=== PATIENT | female | born 1985 | race Caucasian/White ===

== ENCOUNTER 2016-08-12 04:23 | Emergency (ER) | payer OTHER ==
[2016-08-12] MEDS ORDERED: ACETAMINOPHEN TAB 500 MG TAB PO STA (04:43)
[2016-08-12] MEDS ORDERED: SODIUM CHLORIDE 0.9% 500 ML IV ONE (04:43)
--- NOTE | 2016-08-12 04:45 | ED ---
General Adult HPI - General Chief complaint: Upper Respiratory Infection Stated complaint: URI Time Seen by Provider: 08/12/16 04:30 Source: patient, RN notes reviewed Mode of arrival: ambulatory Limitations: no limitations - History of Present Illness Initial comments: Is a 31-year-old female who is 20 weeks . Patient comes into the emergency Department complaining that she's had a fever the last couple of days and had a significant cough. Patient denies any shortness of breath or difficulty breathing. Patient states this morning she was coughing hard and thought she might pass out. She denies sided to come to the emergency department. Patient states she coughed so hard that she has noticed that the baby is moving more inside of her. Patient denies any chest pain or palpitations. Patient denies any significant abdominal pain. Patient denies any dysuria or hematuria urinary frequency. Patient denies taking anything for the fever. Patient states she also had body aches. Patient states she didn't get the flu shot. - Related Data Previous Rx's Medication Instructions Recorded Oseltamivir [Tamiflu] 75 mg PO Q12HR #10 cap 08/12/16 Allergies Allergy/AdvReac Type Severity Reaction Status Date / Time No Known Allergies Allergy Verified 08/12/16 05:39 Review of Systems ROS Statement: Those systems with pertinent positive or pertinent negative responses have been documented in the HPI. ROS Other: All systems not noted in ROS Statement are negative. Past Medical History Past Medical History: No Reported History History of Any Multi-Drug Resistant Organisms: None Reported Past Surgical History: Appendectomy Additional Past Surgical History / Comment(s): , tube placed in ear Past Psychological History: No Psychological Hx Reported Smoking Status: Never smoker Past Alcohol Use History: None Reported Past Drug Use History: None Reported General Exam - General Exam Comments Initial Comments: GENERAL: Patient is well-developed and well-nourished. Patient is nontoxic and well- hydrated and is in mild distress. ENT: Neck is soft and supple. No significant lymphadenopathy is noted. Oropharynx is clear. Moist mucous membranes. Neck has full range of motion without eliciting any pain. EYES: The sclera were anicteric and conjunctiva were pink and moist. Extraocular movements were intact and pupils were equal round and reactive to light. Eyelids were unremarkable. PULMONARY: Unlabored respirations. Good breath sounds bilaterally. No audible rales rhonchi or wheezing was noted. CARDIOVASCULAR: There is a regular rate and rhythm without any murmurs gallops or rubs. ABDOMEN: Soft and nontender with normal bowel sounds. No palpable organomegaly was noted. There is no palpable pulsatile mass. SKIN: Skin is clear with no lesions or rashes and otherwise unremarkable. NEUROLOGIC: Patient is alert and oriented x3. Cranial nerves II through XII are grossly intact. Motor and sensory are also intact. Normal speech, volume and content. Symmetrical smile. MUSCULOSKELETAL: Normal extremities with adequate strength and full range of motion. No lower extremity swelling or edema. No calf tenderness. LYMPHATICS: No significant lymphadenopathy is noted PSYCHIATRIC: Normal psychiatric evaluation. Normal interpersonal interactions appears functionally intact in deals appropriately with others. No signs of depression. No signs of anxiety Limitations: no limitations Course Vital Signs 08/12/16 08/12/16 04:26 05:05 Temperature 100.5 F H Pulse Rate 129 H Pulse Rate [ 110 H Sitting] Pulse Rate [ 132 H Standing] Pulse Rate [ 107 H Supine] Respiratory 20 Rate Blood Pressure 126/82 Blood Pressure 107/62 [Sitting] Blood Pressure 116/71 [Standing] Blood Pressure 105/61 [Supine] O2 Sat by Pulse 98 Oximetry Medical Decision Making - Medical Decision Making Patient refused Tylenol and refused Tamiflu in the ER - Lab Data Result diagrams: 08/12/16 04:52 08/12/16 04:52 Lab Results 08/12/16 08/12/16 08/12/16 Range/Units 04:52 04:52 04:52 WBC 5.8 (3.8-10.6) k/uL RBC 4.51 (3.80-5.40) m/uL Hgb 13.6 (11.4-16.0) gm/dL Hct 37.8 (34.0-46.0) % MCV 83.9 (80.0-100.0) fL MCH 30.1 (25.0-35.0) pg MCHC 35.9 (31.0-37.0) g/dL RDW 13.4 (11.5-15.5) % Plt Count 157 (150-450) k/uL Neutrophils % 81 % Lymphocytes % 10 % Monocytes % 5 % Eosinophils % 1 % Basophils % 1 % Neutrophils # 4.7 (1.3-7.7) k/uL Lymphocytes # 0.6 L (1.0-4.8) k/uL Monocytes # 0.3 (0-1.0) k/uL Eosinophils # 0.0 (0-0.7) k/uL Basophils # 0.0 (0-0.2) k/uL Sodium 137 (137-145) mmol/L Potassium 3.8 (3.5-5.1) mmol/L Chloride 104 (98-107) mmol/L Carbon Dioxide 21 L (22-30) mmol/L Anion Gap 12 mmol/L BUN 4 L (7-17) mg/dL Creatinine 0.40 L (0.52-1.04) mg/dL Est GFR (MDRD) Af Amer >60 (>60 ml/min/1.73 sqM) Est GFR (MDRD) Non-Af >60 (>60 ml/min/1.73 sqM) Glucose 107 H (74-99) mg/dL Calcium 9.0 (8.4-10.2) mg/dL Total Bilirubin 0.5 (0.2-1.3) mg/dL AST 24 (14-36) U/L ALT 35 (9-52) U/L Alkaline Phosphatase 55 (38-126) U/L Total Protein 6.9 (6.3-8.2) g/dL Albumin 3.9 (3.5-5.0) g/dL Influenza Type A RNA Not Detected (Not Detectd) Influenza Type B (PCR) Detected H (Not Detectd) Disposition Clinical Impression: Influenza Disposition: HOME SELF-CARE Condition: Good Instructions: Influenza (ED) Prescriptions: Oseltamivir [Tamiflu] 75 mg PO Q12HR #10 cap Referrals: None,Stated [Primary Care Provider] - 1-2 days Time of Disposition: 05:38
[2016-08-12 05:09] LABS: Basophils % (A) 1 %; CH 30.7; CHCM 36.7; Eosinophils % (A) 1 %; HCT 37.8 % (34.0-46.0); HDW 2.92; HGB 13.6 gm/dL (11.4-16.0); Luc # (Auto) 0.16; Luc % (Auto) 3; Lymphocytes # (A) 0.6 k/uL (1.0-4.8); Lymphocytes % (A) 10 %; MCH 30.1 pg (25.0-35.0); MCHC 35.9 g/dL (31.0-37.0); MCV 83.9 fL (80.0-100.0); Mean Platelet Volume 7.9; Monocytes # (A) 0.3 k/uL (0-1.0); Monocytes % (A) 5 %; Neutrophils # (A) 4.7 k/uL (1.3-7.7); Neutrophils % (A) 81 %; RBC 4.51 m/uL (3.80-5.40); RDW 13.4 % (11.5-15.5); WBC 5.8 k/uL (3.8-10.6); WBC (Perox) 5.83
[2016-08-12 05:18] LABS: ALT 35 U/L (9-52); AST 24 U/L (14-36); Alkaline Phosphatase 55 U/L (38-126); Anion Gap 12 mmol/L; Blood Urea Nitrogen 4 mg/dL (7-17); Carbon Dioxide 21 mmol/L (22-30); Chloride 104 mmol/L (98-107); Glucose 107 mg/dL (74-99); Non-African American GFR(MDRD) >60 (>60 ml/min/1.73 sqM); Potassium 3.8 mmol/L (3.5-5.1); Sodium 137 mmol/L (137-145); Total Bilirubin 0.5 mg/dL (0.2-1.3); Total Protein 6.9 g/dL (6.3-8.2)
[2016-08-12] MEDS ORDERED: OSELTAMIVIR 75 MG CAP PO STA (05:34)
[2016-08-12 06:11] LABS: Amorphous Sediment,Urine Rare /hpf; Appearance,Urine Cloudy (Clear); Bacteria,Urine Rare /hpf; Bilirubin,Urine Negative (Negative); Glucose,Urine (UA) Negative (Negative); Ketones,Urine 1+ (Negative); Leukocyte Esterase,Urine Trace (Negative); Mucus,Urine Rare /hpf; Nitrite,Urine Negative (Negative); PH, Urine 5.5 (5.0-8.0); Particle Count 4367; Protein,Urine Negative (Negative); RBC,Urine <1 /hpf (0-5); Specific Gravity,Urine 1.005 (1.001-1.035); Squamous Epithelial Cell,Urine 5 /hpf (0-4); UA Billing (MACRO vs. MICRO) MICRO; Urobilinogen,Urine <2.0 mg/dL (<2.0); WBC,Urine 4 /hpf (0-5)
[2016-08-12 06:24] VITALS: BP 108/69; PULSE 100; RESP 16; TEMP 99.9
== END 2016-08-12 06:24 | disposition home or self-care (01) ==
LOC: EC 04:23
DX: O26.892 Other specified pregnancy related conditions, second trimester (principal); J11.1 Influenza due to unidentified influenza virus with other respiratory manifestations; Z3A.20 20 weeks gestation of pregnancy
CPT/HCPCS: 36415; 80053; 81001; 85025; 87502; 96360; 99283

== ENCOUNTER → 2016-09-07 | Outpatient (CLI) | payer OTHER ==
--- NOTE | 2016-09-07 16:37 | US ---
EXAMINATION TYPE: US OB anatomy transabd DATE OF EXAM: 09/07/2016 4:02 PM COMPARISON: NONE HISTORY: Large for Dates O36.62X0 no complaints per pt TECHNIQUE: Transabdominal (TA) EXAM MEASUREMENTS: GESTATIONAL AGE / DATING Physician Established: (23 weeks/2 days) EDC: 01/02/2017 Dates by LMP: (23 weeks/2 days) EDC: 01/02/2017 Dates by First Scan: (22 weeks/3 days) EDC: 01/08/2017 Dates by Current Scan for: (23 weeks/3 days) EDC: 01/01/2017 SURVEY IUP: Single PLACENTA: Posterior PREVIA: No previa BRANDI: 15.8 cm Normal CERVICAL LENGTH (transabdominal: norm > 3.0cm): 3.6 cm BIOMETRY PRESENTATION: Vertex LIE: Longitudinal BPD: 5.7 cm 23 weeks / 4 days HC: 20.2 cm 22 weeks / 3 days AC: 19.2 cm 23 weeks / 5 days FL: 4.2 cm 23 weeks / 5 days ESTIMATED WEIGHT IN GRAMS: 616 grams ESTIMATED WEIGHT IN LBS/OZS: 1 lbs. 6 oz. WEIGHT PERCENTAGE BASED ON ESTABLISHED DATE: 61 % HC/AC: 1.05 Normal FL/AC: 22 Normal HEART RATE: 141 bpm RHYTHM: Normal ANATOMY SEEN (within normal limits): * Lateral Vent (< 1 cm) 0.6 cm * Cisterna Magna (< 1.1 cm) 0.3 cm * Nuchal Fold (< 0.6 cm) 0.3 cm * Cerebellum (varies with age) 2.2 cm Choroid Plexus (bilateral) Midline Falx Cavus Septi Pellucidi Four Chamber Heart Outflow tracts: LVOT/RVOT Stomach Situs Nose / Lips Diaphragm Kidneys (bilateral) Bladder Cord Insert Three Vessel Cord Longitudinal Spine Transverse Spine Arms (bilateral) Legs (bilateral) IMPRESSION: 1. Single intrauterine gestation estimated at 23 weeks 3 days gestation. This would have a calculated EDC of 01/01/2017. Correlate this with her physician established EDC is 01/02/2017. 2. Cardiac activity measures 141 bpm.
== END | disposition home or self-care (01) ==
LOC: RADUSWWP 15:25
PROVIDERS: ATTEND Obstetrics & Gynecology
DX: O36.62X0 Maternal care for excessive fetal growth, second trimester, not applicable or unspecified (principal); Z3A.23 23 weeks gestation of pregnancy
CPT/HCPCS: 76811

== ENCOUNTER 2016-12-27 05:51 | Inpatient (IN) | payer OTHER ==
[2016-12-26 12:28] VITALS: BMI 39.3
--- NOTE | 2016-12-26 17:44 | P.HPOB ---
History of Present Illness H&P Date: 12/26/16 Chief Complaint: Brixey at term: Previous section Patient is a 31-year-old at 39 weeks gestation arise for repeat section. Her Precis course has been unremarkable and she is feeling well at this time. It is noted early in the she did have some skipped beats but this resolved without any other therapies. Her pertinent labs did include O + blood type rubella immune hepatitis B surface antigen RPR and cystic fibrosis screen were all negative. She's had 2 prior sections and is scheduled for repeat section. On physical exam vital signs are stable and afebrile. Heart regular, lungs clear, extremities without pain. Osteopathic exams unremarkable. Abdomen soft gravid uterus is noted. heart tones will be obtained prior to going to the section room. All questions are answered for her prior to going and risks benefits and alternatives were thoroughly discussed. Assessment intrauterine at term. Prior sections. Plan repeat section. Past Medical History Past Medical History: No Reported History History of Any Multi-Drug Resistant Organisms: None Reported Past Surgical History: Appendectomy, Section Additional Past Surgical History / Comment(s): , tube placed in ear Past Anesthesia/Blood Transfusion Reactions: No Reported Reaction Smoking Status: Never smoker - Past Family History Mother Family Medical History: No Reported History Medications and Allergies Home Medications Medication Instructions Recorded Confirmed Type No Known Home Medications [No 12/26/16 12/26/16 History Known Home Medications] Allergies Allergy/AdvReac Type Severity Reaction Status Date / Time No Known Allergies Allergy Verified 12/26/16 12:22 Exam Osteopathic Statement: *. No significant issues noted on an osteopathic structural exam other than those noted in the History and Physical/Consult. - Vital Signs Vital signs: Intake and Output 12/26/16 12/26/16 12/26/16 06:59 14:59 22:59 Other: Weight 100.698 kg Patient Weight 12/27/16 06:59 Weight 100.698 kg
[2016-12-27] MEDS ORDERED: CITRIC ACID-SODIUM CITRATE 15 ML CUP PO ONE (06:05)
[2016-12-27] MEDS ORDERED: ceFAZolin 2 GM in SODIUM CHLORIDE 0.9% 100 ML IVPB ONE (06:05)
[2016-12-27] MEDS: LACTATED RINGERS 1,000 ML IV SCH ×5 (06:25→20:25)
[2016-12-27 06:29] LABS: Basophils % (A) 0 %; CHCM 32.9; Eosinophils # (A) 0.1 k/uL (0-0.7); Eosinophils % (A) 1 %; HCT 34.2 % (34.0-46.0); HDW 3.51; HGB 11.5 gm/dL (11.4-16.0); Hypochromasia Slight; Luc # (Auto) 0.23; Luc % (Auto) 2; Lymphocytes # (A) 1.8 k/uL (1.0-4.8); Lymphocytes % (A) 19 %; MCH 25.5 pg (25.0-35.0); MCHC 33.6 g/dL (31.0-37.0); MCV 75.9 fL (80.0-100.0); Mean Platelet Volume 8.6; Microcytosis Slight; Monocytes # (A) 0.4 k/uL (0-1.0); Monocytes % (A) 4 %; Neutrophils # (A) 7.1 k/uL (1.3-7.7); Neutrophils % (A) 74 %; Poikilocytosis Slight; RDW 14.9 % (11.5-15.5); WBC 9.6 k/uL (3.8-10.6); WBC (Perox) 9.78
[2016-12-27] MEDS ORDERED: OXYTOCIN 10 UNIT/ML 1 ML VIAL ONE (07:50)
[2016-12-27] MEDS ORDERED: ONDANSETRON 4 MG/2 ML VIAL ONE (07:50)
[2016-12-27] MEDS ORDERED: NALBUPHINE 10 MG/ML AMPUL ONE (07:50)
[2016-12-27] MEDS ORDERED: KETOROLAC 30 MG/ML 1 ML VIAL ONE (07:50)
[2016-12-27] MEDS ORDERED: MORPHINE SULFATE 4 MG/ML SYRINGE IVP PRN (08:38)
[2016-12-27] MEDS ORDERED: NALOXONE 0.4 MG/ML 1 ML VIAL IV PRN ×2 (08:38→08:41)
[2016-12-27] MEDS ORDERED: diphenhydrAMINE 50 MG/ML 1 ML VIAL IVP PRN ×3 (08:38→08:41)
[2016-12-27] MEDS ORDERED: ONDANSETRON 4 MG/2 ML VIAL IVP PRN (08:38)
[2016-12-27] MEDS ORDERED: ZOLPIDEM 5 MG TAB PO PRN (08:41)
[2016-12-27] MEDS ORDERED: diphenhydrAMINE 50 MG CAP PO PRN (08:41)
[2016-12-27] MEDS ORDERED: Acetaminophen-Codeine 300-30mg TAB PO PRN (08:41)
[2016-12-27] MEDS ORDERED: METOCLOPRAMIDE 5 MG/ML 2 ML VIAL IVP PRN (08:41)
[2016-12-27] MEDS ORDERED: ACETAMINOPHEN TAB 325 MG TAB PO PRN (08:41)
[2016-12-27] MEDS ORDERED: diphenhydrAMINE 25 MG CAP PO PRN (08:41)
--- NOTE | 2016-12-27 08:45 | P.OP ---
Date of Procedure: 12/27/16 Preoperative Diagnosis: Intrauterine at term: Previous sections Postoperative Diagnosis: Same Procedure(s) Performed: Repeat low transverse section Implants: Anesthesia: spinal Surgeon: Kevin Gordon Data Modeling Architect #1: Yosef Arevalo Estimated Blood Loss (ml): 600 IV fluids (ml): 1,000 Urine output (ml): 1,000 Pathology: other (Placenta) Condition: stable Disposition: floor Indications for Procedure: Operative Findings: Male scores of 8 and 10 at one and 5 minutes and weight was 7 lbs. 14 oz. Description of Procedure: Patient was taken to the operating suite where a spinal anesthetic was found be adequate. She was prepped and draped in the normal sterile fashion and placed in dorsal supine position with leftward tilt. Initially a Pfannenstiel skin incision was made and this incision was then carried through to the underlying layer of the fascia with the second knife. Fascia was then nicked in the midline and this opening was extended laterally with Godinez scissors superior and inferior aspect of this incision were then grasped tented up and bluntly and sharply dissected off the rectus muscles. Rectus muscles were then divided the midline and sharp dissection to the peritoneum was made. This opening was then extended superiorly and inferiorly with good visualization of both bowel and bladder. Bladder blade was then placed and bladder was noted to be out of the operative field. Knife was then used to incise the uterus and this opening was extended bluntly following entering the uterus fully with a hemostat. Once this was accomplished head was atraumatically delivered mouth and nares were bulb suctioned. Anterior and posterior shoulders were then delivered with gentle downward upper traction followed by the remainder the baby. Mouth mouth and nares again were suctioned and umbilical cord was clamped cut usual fashion. Nursery personnel was present to assume care. Placenta was then delivered intact and Pitocin was added to the IV. Uterus was then exteriorized cleared of clots and debris and closed in 2 layers with 0 Vicryl suture. Once excellent hemostasis was obtained blood and debris was suctioned from the posterior cul-de-sac and the uterus was reinserted into the abdomen. Peritoneal layer was then reapproximated with 0 Vicryl suture fascial layer was closed with 0 Vicryl suture. One layer of 3-0 Vicryl was used to reapproximate the skin and the skin was then closed with 3-0 Vicryl on a Ariel needle. Sponge , lap, needle counts were all correct 2. Patient was then taken to the recovery room in stable and satisfactory condition.
[2016-12-27] MEDS: KETOROLAC 30 MG/ML 1 ML VIAL IVP PRN ×2 (14:24→23:18)
[2016-12-27] MEDS: SENNOSIDES-DOCUSATE SODIUM 1 EACH TAB PO SCH (19:25)
[2016-12-28] MEDS: IBUPROFEN 600 MG TAB PO PRN ×2 (06:18→14:04)
[2016-12-28] MEDS: SENNOSIDES-DOCUSATE SODIUM 1 EACH TAB PO SCH ×2 (07:30→19:44)
--- NOTE | 2016-12-28 08:39 | P.PNOBGPC ---
Subjective - Subjective Principal diagnosis: pod #1 Interval history: doing well. all questions answered. cont care Patient reports: Reports appetite normal, Reports voiding normally, Reports pain well controlled, Reports ambulating normally [place]: doing well Objective - Vital Signs Latest vital signs: Vital Signs Temp Pulse Resp BP Pulse Ox 12/28/16 06:00 85 16 97 12/28/16 04:00 97.5 F L 83 16 98/60 98 12/28/16 01:51 16 98 12/28/16 00:00 97.5 F L 71 16 101/59 98 12/27/16 22:00 16 12/27/16 20:00 97.4 F L 71 16 102/70 98 12/27/16 17:00 98 12/27/16 16:00 98.3 F 72 16 112/62 12/27/16 13:39 98 12/27/16 12:00 97.6 F 85 16 105/62 97 12/27/16 10:22 66 16 113/67 12/27/16 10:02 71 16 101/60 12/27/16 09:47 72 16 107/63 100 12/27/16 09:32 63 16 108/63 100 12/27/16 09:17 74 16 116/64 100 12/27/16 09:02 90 16 114/77 98 12/27/16 08:47 73 16 113/64 98 Intake and Output 12/27/16 12/28/16 12/28/16 22:59 06:59 14:59 Output Total 650 600 Balance -650 -600 Output: Urine 650 600 - Exam Lungs: bilateral: normal Chest: Normal S1, Normal S2 Extremities: Present: normal Abdomen: Present: normal appearance, soft. Absent: distention, tenderness Incision: Present: normal, dry, intact Uterus: Present: normal, firm
[2016-12-28 09:15] LABS: Basophils % (A) 0 %; CH 24.1; CHCM 31.9; Eosinophils # (A) 0.1 k/uL (0-0.7); Eosinophils % (A) 1 %; HDW 3.51; Hypochromasia Moderate; Luc # (Auto) 0.31; Luc % (Auto) 3; Lymphocytes # (A) 2.2 k/uL (1.0-4.8); Lymphocytes % (A) 19 %; MCH 24.9 pg (25.0-35.0); MCHC 32.9 g/dL (31.0-37.0); MCV 75.8 fL (80.0-100.0); Mean Platelet Volume 8.6; Monocytes # (A) 0.5 k/uL (0-1.0); Monocytes % (A) 4 %; Neutrophils # (A) 8.2 k/uL (1.3-7.7); Neutrophils % (A) 72 %; Poikilocytosis Slight; RBC 3.17 m/uL (3.80-5.40); RDW 14.5 % (11.5-15.5); WBC 11.3 k/uL (3.8-10.6); WBC (Perox) 11.71
[2016-12-28 09:16] LABS: HGB 7.9 gm/dL (11.4-16.0)
[2016-12-28] MEDS: Acetaminophen-Codeine 300-30mg TAB PO PRN (09:47)
--- NOTE | 2016-12-28 10:48 | P.PN ---
Progress Note - Text 0701 Anesthesia POD 1. Patient is status post section under spinal anesthesia with intra-thecal preservative free morphine the 300 g. Mild pruritus, good post-op analgesia, and no headache or other complications.
[2016-12-28 23:41] VITALS: RESP 18
[2016-12-29] MEDS: IBUPROFEN 600 MG TAB PO PRN ×2 (00:26→08:28)
[2016-12-29] MEDS: Acetaminophen-Codeine 300-30mg TAB PO PRN ×2 (03:34→12:32)
[2016-12-29] MEDS: SENNOSIDES-DOCUSATE SODIUM 1 EACH TAB PO SCH (08:28)
[2016-12-29 08:34] VITALS: BP 105/61; PULSE 108; TEMP 98.3
--- NOTE | 2016-12-29 09:46 | P.DS ---
Providers Date of admission: 12/27/16 05:51 Expected date of discharge: 12/29/16 Attending physician: Kevin Gordon Primary care physician: Stated None Hospital Course: Ayse is doing very well postop day 2. She is involuting, voiding, and she is tolerating her diet. She voices no complaints. Vital signs are stable and she is afebrile. Heart regular, lungs clear, extremities without pain. Abdomen soft uterus is firm and her incision is clean dry and intact. Assessment postop day 2. Plan discharged home follow me in 1 week. Prescription for pain relievers has been provided and discharge instructions thoroughly reviewed she is stable for discharge at this time. Patient Condition at Discharge: Good Plan - Discharge Summary New Discharge Prescriptions: New Acetaminophen-Codeine 300-30mg [Tylenol #3] 1 tab PO Q4H PRN #30 tablet PRN Reason: Pain Ibuprofen [Motrin] 600 mg PO Q6HR PRN #30 tab PRN Reason: Pain Discharge Medication List Acetaminophen-Codeine 300-30mg [Tylenol #3] 1 tab PO Q4H PRN #30 tablet [Rx] Ibuprofen [Motrin] 600 mg PO Q6HR PRN #30 tab 12/29/16 [Rx] Follow up Appointment(s)/Referral(s): Kevin Gordon DO [Doctor of Osteopathic Medicine] - 1 Week Activity/Diet/Wound Care/Special Instructions: No heavy lifting, limit stairs and driving, and pelvic rest. If any high temperatures, heavy bleeding, or severe pain call my office Discharge Disposition: HOME SELF-CARE
== END 2016-12-29 14:32 | disposition home or self-care (01) | DRG 766 ==
LOC: 4FBP 05:51
PROVIDERS: ADMIT Obstetrics & Gynecology; ATTEND Obstetrics & Gynecology
PROC: 10D00Z1 Extraction of Products of Conception, Low, Open Approach (ICD-10-PCS; principal; 2016-12-27 07:59)
DX: O34.211 Maternal care for low transverse scar from previous cesarean delivery (principal); Z37.0 Single live birth; Z3A.39 39 weeks gestation of pregnancy
CPT/HCPCS: 85025; 86850; 86900; 86901; 88307